=== PATIENT | female | born 1995 | race Caucasian/White ===

== ENCOUNTER 2017-06-15 08:49 | Emergency (ER) | payer OTHER ==
[2017-06-15 09:03] VITALS: BP 111/81
[2017-06-15] MEDS ORDERED: TORADOL IM ONE (11:52)
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
--- NOTE | 2017-06-15 22:44 | ED Elopement Review ---
ED Pt Elopement review - Results review Lab results: No labs results. - Call Back decision Pt Call Back Decision: Pt to F/U with PMD (left hospital after being seen. She says she is going to be seen by her primary care doctor.)
== END 2017-06-15 12:01 | disposition left against medical advice (07) ==
LOC: ED 08:49
DX: M54.5 Low back pain (principal); M54.2 Cervicalgia; V89.2XXA Person injured in unspecified motor-vehicle accident, traffic, initial encounter; Y93.89 Activity, other specified; Y99.9 Unspecified external cause status; Y92.410 Unspecified street and highway as the place of occurrence of the external cause
CPT/HCPCS: 99281

== ENCOUNTER 2017-09-24 09:04 | Emergency (ER) | payer SELFPAY ==
[2017-09-24 09:53] VITALS: BP 104/64
[2017-09-24 10:34] LABS: Basophils % (Auto) 0.8 % (0.0-1.8); Hematocrit 38.1 % (30.3-42.9); Hemoglobin 12.9 gm/dl (10.1-14.3); Mean Corpuscular HGB Conc 34 % (30-34); Mean Corpuscular Hemoglobin 33 pg (28-32); Mean Corpuscular Volume 96 fl (79-97); Platelet Count 192 K/mm3 (140-440); Red Blood Count 3.95 M/mm3 (3.65-5.03); Red Cell Distribution Width 13.2 % (13.2-15.2); White Blood Count 4.4 K/mm3 (4.5-11.0)
[2017-09-24 10:44] LABS: Alanine Aminotransferase 11 units/L (7-56); Albumin 4.2 g/dL (3.9-5); Albumin/Globulin Ratio 1.6 %; Alkaline Phosphatase 45 units/L (35-129); Anion Gap 14 mmol/L; BUN/Creatinine Ratio 26; Blood Urea Nitrogen 13 mg/dL (7-17); Calcium 9.1 mg/dL (8.4-10.2); Carbon Dioxide 29 mmol/L (22-30); Chloride 100.7 mmol/L (98-107); Glucose 70 mg/dL (65-100); Lipase 32 units/L (13-60); Sodium 140 mmol/L (137-145); Total Protein 6.8 g/dL (6.3-8.2)
[2017-09-24 11:11] LABS: Bacteria,Urine 1+ /HPF (Negative); Bilirubin,Urine NEG (Negative); Blood,Urine SM (Negative); Ketones,Urine NEG (Negative); Leukocyte Esterase,Urine SM (Negative); Nitrite,Urine NEG (Negative); Protein,Urine <15 mg/dL mg/dL (Negative); Urobilinogen,Urine < 2.0 mg/dL (<2.0)
[2017-09-24] MEDS ORDERED: MOTRIN PO ONE (15:25)
[2017-09-24] MEDS ORDERED: ULTRAM PO ONE (15:25)
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
[2017-09-24] MEDS ORDERED: MACROBID PO ONE (17:35)
[2017-09-24] MEDS ORDERED: FLAGYL PO ONE (17:35)
[2017-09-24] MEDS ORDERED: CLEOCIN ONE (18:08)
[2017-09-24] MEDS ORDERED: CLEOCIN PO ONE (18:10)
== END 2017-09-24 18:15 | disposition home or self-care (01) ==
LOC: ED 09:04
DX: N76.0 Acute vaginitis (principal); N39.0 Urinary tract infection, site not specified; Z87.891 Personal history of nicotine dependence
CPT/HCPCS: 36415; 80053; 81001; 81025; 83690; 85025; 87210; 87591; 99284